=== PATIENT | female | born 1945 | race Caucasian/White ===

== ENCOUNTER 2020-03-07 01:13 | Inpatient (IN) | payer OTHER ==
[~2020-03-07] VITALS: Ht 157.5 cm; Wt 45.9 kg
[2020-03-07 01:22] VITALS: BP 198/78
[2020-03-07 04:33] LABS: BASOPHILS 0.5 % (0.0-2.0); EOSINOPHILS 1.7 % (0.0-3.0); HEMATOCRIT 38.6 % (37.0-47.0); HEMOGLOBIN 12.7 gm/dL (12.0-15.0); LYMPHOCYTES 5.2 % (24.0-44.0); MCH 28.2 pg (26.0-34.0); MCHC 32.8 g/dL (28.0-37.0); MCV 85.9 fL (80.0-100.0); PLATELET COUNT 250 thou/uL (150-400); POLYS 80.6 % (36.0-66.0); RBC 4.49 mil/uL (4.20-5.00); RDW 13.1 % (10.5-14.5); WBC 8.7 thou/uL (4.0-11.0)
[2020-03-07 04:56] LABS: ANION GAP 10 mmol/L (7-16); BUN 16 mg/dL (7-18); CALCIUM 9.7 mg/dL (8.5-10.1); CHLORIDE 104 mmol/L (98-107); CO2 23 mmol/L (21-32); CREATININE 0.6 mg/dL (0.6-1.0); GLUCOSE 167 mg/dL (74-106); POTASSIUM 4.9 mmol/L (3.5-5.1); SODIUM 137 mmol/L (136-145)
[2020-03-07 05:04] LABS: TROPONIN-I <0.06 ng/mL (<0.06)
[2020-03-07] MEDS ORDERED: ALENDRONATE SOD70 MG PO (05:12)
[2020-03-07] MEDS ORDERED: LISINOPRIL20 MG PO ×2 (05:12→05:13)
[2020-03-07] MEDS ORDERED: LIPITOR20 MG PO (05:12)
[2020-03-07] MEDS ORDERED: FISH OIL 1,0001 EAC9 PO (05:13)
[2020-03-07] MEDS ORDERED: ATENOLOL 25 MG25 M1 PO (05:13)
[2020-03-07] MEDS ORDERED: CHILDREN'S ASPI81 M1 PO (05:13)
[2020-03-07 06:14] LABS: URINE BILIRUBIN NEGATIVE (Negative); URINE BLOOD NEGATIVE (Negative); URINE CLARITY CLEAR; URINE COLOR YELLOW; URINE GLUCOSE-RANDOM* NEGATIVE (Negative); URINE KETONES NEGATIVE (Negative); URINE LEUKOCYTES-REFLEX NEGATIVE (Negative); URINE NITRITE-REFLEX NEGATIVE (Negative); URINE PROTEIN (DIPSTICK) TRACE (Negative); URINE UROBILINOGEN 0.2 E.U./dl (0.2-1.0)
--- NOTE | 2020-03-07 07:19 | EKG ---
[place] [address] [facility] [place] [address] ELECTROCARDIOGRAM REPORT Name: WILLIAM MENDOZA Room #: 170-2 ADM IN M.R.#: [id number] Admission: 03/07/20 Attend Phys: Dennys Cheney Discharge: Date of : 49 Report #: [id number] [facility] ED Test Date: 2020-03-07 Test Time: 04:20:44 Pat Name: WILLIAM MENDOZA Department: Room: 170 Gender: F Early Childhood Director: MARITZA : 1945 Requested By: Maryann Renteria Order Number: [id number] MD: Alexx Garcia Measurements Intervals [place] Rate: 91 P: 51 AK: 125 QRS: 12 QRSD: 85 T: 46 QT: 350 QTc: 431 Interpretive Statements Sinus rhythm Nonspecific ST segment abnormality Compared to ECG 08/21/1993 16:39:00 Atrial premature complex(es) no longer present Electronically Signed On 03-07-2020 7:19:30 COMBER SETTER by Alexx Garcia [email or web address] <ELECTRONICALLY SIGNED> By: Alexx Garcia MD, [facility] 03/07/20 0719 0420 042 Alexx Garcia MD, FACC /EPI
[2020-03-07 08:04] LABS: APTT 27.9 Seconds (24.5-32.8); PROTIME 10.5 Seconds (9.3-11.4)
[2020-03-07 11:21] LABS: FOLIC ACID 66.6 ng/mL (8.6-58.9)
[2020-03-07 14:46] LABS: CLARITY CLOUDY; COLOR RED; SOURCE CHEST; TOTAL VOLUME 60 mL
[2020-03-07 14:56] LABS: BF NUCLEATED CELLS 2286 /mm3; BF RBC 198679 /mm3
[2020-03-07 15:15] VITALS: BP 157/75
[2020-03-07 15:16] VITALS: BP 145/67
[2020-03-07 16:39] LABS: BF MACROPHAGE 24 %; BF NEUTROPHILS 73 %
[2020-03-07 19:00] VITALS: BP 146/63
--- NOTE | 2020-03-07 19:40 | NUR ---
PT. ARRIVED AT FLOOR AROUND 1500; PT. AOX4; C/O PAIN OVER L. SIDE WHEN UP AND MOVING; REFUSED PRN PAIN MEDICATION; EDUCATED ABOUT PAIN MANAGEMENT; EDUCATED ABOUT FALL PREVENTIONS; ST. UNDERSTANDING; EDUCATED ABOUT CALL LIGHT & BED CONTROLS; ADMISSION PERFORMED; SR ON THE MONITOR; ASSESSMENT CHARGED; FOLLOWING POC; SPOUSE UPDATED ABOUT PT'S HEALTH; ST. UNDERSTANDING; ASSESSMENT CHARGED; FOLLOWING POC; PASSED ON REPORT;
[2020-03-07 23:52] VITALS: BP 145/60
[2020-03-08 00:06] LABS: GLYCOHEMOGLOBIN (HGB A1C) 5.6 % (4.8-5.6)
[2020-03-08 04:00] VITALS: BP 142/58
--- NOTE | 2020-03-08 04:50 | NUR ---
ASSESSMENTS CHARTED, MEDS CHARTED GIVEN. PATIENT RESTING IN BED DURING SHIFT. UP TO BSC WITH ASSIST OF ONE. PATIENT STATES SHE IS BREATHING MUCH BETTER NOW THAT FLUID HAS BEEN REMOVED. ON ROOM AIR. HS ACCU CHECK WAS 184 COVERED WITH 3 UNITS HUMALOG. PATIENT RECEIVING ANTIBIOTICS CHARTED. PATIENT IS SCHEDULED FOR ANOTHER CXR THIS MORNING. FALL PRECAUTIONS ARE IN PLACE DURING SHIFT.
[2020-03-08 07:35] VITALS: BP 140/75
[2020-03-08 11:30] VITALS: BP 157/70
[2020-03-08 12:06] LABS: BODY FLUID ALBUMIN 2.1 g/dL (Not Estab.); BODY FLUID AMYLASE 15 U/L (()); BODY FLUID GLUCOSE 123 mg/dL (()); BODY FLUID LDH 288 IU/L (()); BODY FLUID PROTEIN 3.3 g/dL (())
[2020-03-08 15:28] LABS: SOURCE CHEST
[2020-03-08 15:29] LABS: SOURCE CHEST
[2020-03-08 15:45] VITALS: BP 135/74
--- NOTE | 2020-03-08 19:34 | NUR ---
RECEIVE PT'S CARE AROUND 0710; PT. ON BED; ALERT; SR ON THE MONITOR; DURING AM ASSESSMENT AOX4; C/O PAIN OVER BACK; REFUSED PAIN MEDICATION; AM MEDICATION GIVEN; ABLE TO GET UP FROM BED TO BATHROOM; NO C/O SOB; EDUCATED ABOUT FALL PRECAUTIONS; ST. UNDERSTANDING; OT/PT ORDERED; ASSESSMENT CHARGED; FOLLOWING POC; WILL PASS ON REPORT;
[2020-03-08 19:40] VITALS: BP 154/67
[2020-03-09 04:30] VITALS: BP 174/65
[2020-03-09 07:42] VITALS: BP 150/65
[2020-03-09 12:04] VITALS: BP 139/69
[2020-03-09 15:30] VITALS: BP 141/68
--- NOTE | 2020-03-09 20:06 | NUR ---
RECEIVED PT'S CARE AROUND 709; PT. ON BED; AOX4; DURING AM ASSESSMENT C/O BACK PAIN; 04/30; LIDOCAINE PATCH APPLIED PER EMAR; AM MEDICATIONS GIVEN; SR ON THE MONITOR; DURING THE AFTERNOON AMBULATED AROUND THE UNIT; NO C/O SOB; EDUCATED ABOUT FALL PRECAUTIONS; ST. UNDERSTANDING; ASSESSMENT CHARGED; PASSED ON REPORT;
[2020-03-09 20:25] VITALS: BP 146/74
[2020-03-10 05:46] VITALS: BP 163/67
--- NOTE | 2020-03-10 07:18 | NUR ---
ASSUMED CARE OF THE PATIENT AT 1900; AOX4/ SBA TO TOILET AND CALLS APPROPRIATELY; SR/PVC ON THE MONITOR; NO C/O OF PAIN OR SOB; RESTED QUIETLY THROUGHOUT THE NOC; PLAN IS FOR PATIENT TO UNDERGO MRI TODAY; WILL CONTINUE TO MONITOR.
[2020-03-10 07:31] VITALS: BP 144/73
[2020-03-10 11:25] VITALS: BP 147/64
--- NOTE | 2020-03-10 13:09 | NUR ---
Met with patient who admits with pleural effusion. Patient with spouse at bedside. Patient with plan to dc home today with HH care. Patient reports Dr Roach is her PCP. She reports they are interested in [facility]. Informed [facility] is not related to [facility]. They are aware and agreeable to cont with using [facility]. DC automatic data processing planner to arrange HH care.
--- NOTE | 2020-03-10 15:17 | NUR ---
FAXED REFERRAL TO [facility] SPOKE WITH LICHA IN INTAKE THEY ARE ACCEPTING REFERRAL BUT WOULD NOT BE ABLE TO DO HH VISIT TIL POSS TUESDAY. FAXED REFERRAL TO [facility] SPOKE WITH BENEDICT IN INTAKE THEY CAN ACCEPT AT DISCHARGE.
[2020-03-10 15:35] VITALS: BP 125/55
--- NOTE | 2020-03-10 15:38 | NUR ---
[facility] would not be able to see patient in timely manner. Patient agreeable to use another HH agency. [facility] can accept patient agreeable.
[2020-03-10 15:39] VITALS: BP 147/64
--- NOTE | 2020-03-10 17:49 | NUR ---
ASESSMENT CHARTED - MEDS PER MAY- LAINE DIET AND FLUIDS. PATIENT ATE LUNCH VERY LATE AND BLOOD SUGAR ELEVATED AT 1700 - OPTED TO NOT TAKE INSULIN SHE WAS NOT HUNGRY AND DID NOT WISH TO EAT - WILL REASSESS AT 2100. NO CO'S OF PAIN OR NAUSEA. AMBULATING IN THE DELATORRE WITH STABY ASSIST. UNABLE TO COMPLETE MRI TODAY DUE TO EMERGENY USAGE OF MRI. PT WILL HAVE COMPLETED TOMORROW. NO CO'S AT THE PRESENT TIME.
[2020-03-10 20:30] VITALS: BP 153/61
[2020-03-11 04:00] VITALS: BP 153/74
--- NOTE | 2020-03-11 07:09 | NUR ---
ASSUMED CARE OF THE PATIENT AT 1900; AOX4; SBA TO TOILET/CALLS APPRORPRIATELY; SR WITH SHORT BURST OF SVT/SEE CHART; NO C/O OF PAIN; PLAN IS FOR PATIENT TO HAVE MRI TODAY; WILL CONTINUE TO MONITOR.
[2020-03-11 07:36] VITALS: BP 153/70
[2020-03-11] MEDS ORDERED: HYDROCODON-ACE1 EAC7 PO (09:05)
[2020-03-11] MEDS ORDERED: AUGMENTIN 500-1 EACH PO (09:05)
--- NOTE | 2020-03-11 13:51 | NUR ---
PT DISCHARGING TODAY TO HOME WITH [facility] FAXED DC ORDERS/SUMMARY SPOKE WITH BENEDICT IN INTAKE SHE RECEIVED ORDERS AND WILL ARRANGE VISITS WITH PT.
[2020-03-11 13:54] VITALS: BP 141/61
[2020-03-11 14:39] VITALS: BP 147/64
[2020-03-11 14:41] VITALS: BP 147/64
--- NOTE | 2020-03-11 15:07 | PATH ---
[facility] [address] [place] [address] PATHOLOGY RPT PROCEDURE Name: WILLIAM MENDOZA Room #: 205-P ADM IN M.R.#: [id number] Admission: 03/07/20 Date of : 49 Discharge: Report #: [id number] Path Case #: [id number] Note [facility] Accession Number: [id number] TESTS RESULT FLAG UNITS REF RANGE LAB Clinician Provided Cytology Information No. of containers..01 Other (Miscellaneous) Source: LEFT PLEURAL DIAGNOSIS: 02 LEFT PLEURAL NEGATIVE FOR MALIGNANT EPITHELIAL CELLS. REACTIVE MESOTHELIAL CELLS ARE PRESENT. THIS INTERPRETATION INCLUDES EVALUATION OF A CELL BLOCK. MILD CHRONIC INFLAMMATION. Pathologist ICD10: 02 J90 Signed out by: 02 Deana Phillips MD, Pathologist NPI- [id number] Performed by: 01 Cristy Pool, Editor Sound ([facility]) Gross description: 01 15ML, RED, 1 TP 1 CB /LCS 03/10/2020 1126 Local FLAG LEGEND: L-Low Normal,H-High Normal,LL-Alert Low,HH-Alert High <-Panic Low,>-Panic High,A-Abnormal,AA-Critical Abnormal Performed at: [address] [place] [address] Jaime Huddleston MD, [address] [address] Deana Phillips MD, Specimen Comment: A courtesy copy of this report has been sent to [phone] Specimen Comment: Report sent to Performed at: [address], [place], [place] [id number] MD Jaime Huddleston MD Phone: [phone]
--- NOTE | 2020-03-11 15:24 | NUR ---
PT ASSESSED FOR SHORTNESS OF BREATH FROM RIB INJURY. PT IS UP WITH STAND BY ASSIST, FALL PRECAUTIONS IN PLACE. VSS. PT ASSESSED BY PHYSICAL THERAPY. PT HAD MRI. PT MET WITH CIVIL DRAFTING TECHNICIAN FOR DISCHARGE TO HOME WITH HOME HEALTH. WAS PRESENT FOR DISCHARGE EDUCATION ON NEW MEDICATIONS, CONTINUING CURRENT MEDICATIONS, AND FUTURE APPTS. PT DISCHARGED WITH VIA CAR.
== END 2020-03-11 15:59 | disposition home health service (06) | DRG 200 ==
LOC: ER 01:13 → 2N 06:17 → EROBS 06:17 → 2N 14:50
PROVIDERS: Emergency Medicine; Nurse Practitioner; ADMIT Hospitalist; ATTEND Hospitalist
PROC: 0W9B3ZZ Drainage of Left Pleural Cavity, Percutaneous Approach (ICD-10-PCS; principal; 2020-03-07)
DX: S27.1XXA Traumatic hemothorax, initial encounter (principal); S22.39XA Fracture of one rib, unspecified side, initial encounter for closed fracture; J90 Pleural effusion, not elsewhere classified; I10 Essential (primary) hypertension; E78.5 Hyperlipidemia, unspecified; R73.03 Prediabetes; Z90.12 Acquired absence of left breast and nipple; M54.9 Dorsalgia, unspecified; Z20.828 Contact with and (suspected) exposure to other viral communicable diseases
CPT/HCPCS: 10081

== ENCOUNTER → 2020-03-31 | Outpatient (CLI) | payer OTHER ==
[~2020-03-31] MED LIST: ALENDRONATE SOD70 MG PO; ATENOLOL 25 MG25 M1 PO; AUGMENTIN 500-1 EACH PO; CHILDREN'S ASPI81 M1 PO; FISH OIL 1,0001 EAC9 PO; HYDROCODON-ACE1 EAC7 PO; LIPITOR20 MG PO; LISINOPRIL20 MG PO
== END ==
LOC: RAD 12:59
PROVIDERS: ATTEND Internal Medicine
DX: J90 Pleural effusion, not elsewhere classified (principal)

== ENCOUNTER → 2020-04-02 | Outpatient (CLI) | payer OTHER ==
[2020-04-02 10:34] LABS: ABSOLUTE NEUTROPHILS 3.8 thou/uL (1.4-8.2); BASOPHILS 2.4 % (0.0-2.0); EOSINOPHILS 8.7 % (0.0-3.0); HEMATOCRIT 43.9 % (37.0-47.0); HEMOGLOBIN 13.9 gm/dL (12.0-15.0); LYMPHOCYTES 13.7 % (24.0-44.0); MCH 26.9 pg (26.0-34.0); MCHC 31.6 g/dL (28.0-37.0); MCV 85.2 fL (80.0-100.0); MONOCYTES 10.2 % (1.0-8.0); PLATELET COUNT 204 thou/uL (150-400); RBC 5.16 mil/uL (4.20-5.00); RDW 14.8 % (10.5-14.5); WBC 5.9 thou/uL (4.0-11.0)
[2020-04-02 10:44] LABS: CALCIUM 9.9 mg/dL (8.5-10.1); POTASSIUM 3.5 mmol/L (3.5-5.1)
[2020-04-02 10:47] LABS: APTT 25.2 Seconds (24.5-32.8)
[2020-04-02 12:36] LABS: CLARITY HAZY; COLOR AMBER; SOURCE PLEURAL; TOTAL VOLUME 62 mL
[2020-04-02 13:02] LABS: BF NUCLEATED CELLS 526 /mm3; BF RBC 13907 /mm3
[2020-04-02 13:29] LABS: SOURCE CHEST
[2020-04-02 15:14] LABS: BF MACROPHAGE 22 %; BF NEUTROPHILS 2 %
[2020-04-03 10:08] LABS: BODY FLUID ALBUMIN 2.3 g/dL (Not Estab.); BODY FLUID AMYLASE 23 U/L (()); BODY FLUID GLUCOSE 118 mg/dL (()); BODY FLUID LDH 111 IU/L (()); BODY FLUID PROTEIN 3.5 g/dL (())
== END | disposition home or self-care (01) ==
LOC: ULTRA 09:45
PROVIDERS: ATTEND Internal Medicine
DX: J90 Pleural effusion, not elsewhere classified (principal); Z79.899 Other long term (current) drug therapy; Z87.81 Personal history of (healed) traumatic fracture

== ENCOUNTER → 2020-04-23 | Outpatient (CLI) | payer OTHER | LOC: RAD 12:06 | PROVIDERS: ATTEND Internal Medicine | DX: R06.00 Dyspnea, unspecified (principal) ==

== ENCOUNTER → 2020-06-24 | Outpatient (CLI) | payer OTHER | LOC: RAD 10:37 | PROVIDERS: ATTEND Internal Medicine | DX: J98.11 Atelectasis (principal); J90 Pleural effusion, not elsewhere classified ==

== ENCOUNTER → 2020-06-30 | Outpatient (CLI) | payer OTHER ==
[2020-06-30 12:48] LABS: HEMOGLOBIN 13.5 gm/dL (12.0-15.0); RDW 15.2 % (10.5-14.5); WBC 5.9 thou/uL (4.0-11.0)
[2020-06-30 12:50] LABS: HEMATOCRIT 41.6 % (37.0-47.0); MCHC 32.4 g/dL (28.0-37.0); MCV 86.3 fL (80.0-100.0); RBC 4.82 mil/uL (4.20-5.00)
[2020-06-30 13:04] LABS: APTT 23.4 Seconds (24.5-32.8); INR 0.96; PROTIME 10.5 Seconds (9.3-11.4)
[2020-06-30 13:05] LABS: CALCIUM 9.9 mg/dL (8.5-10.1); CREATININE 0.8 mg/dL (0.6-1.0); POTASSIUM 3.9 mmol/L (3.5-5.1)
[2020-06-30 13:29] LABS: ABSOLUTE NEUTROPHILS 3.6 thou/uL (1.4-8.2); ANISOCYTOSIS SLIGHT; PLATELET COUNT 130 thou/uL (150-400)
[2020-06-30 13:30] LABS: POLYCHROMASIA SLIGHT; SCHISTOCYTES OCCASIONAL
== END | disposition home or self-care (01) ==
LOC: LAB 11:51
PROVIDERS: ATTEND Surgery Vascular Surgery
DX: J90 Pleural effusion, not elsewhere classified (principal); Z79.899 Other long term (current) drug therapy; Z20.822 Contact with and (suspected) exposure to COVID-19

== ENCOUNTER → 2020-07-29 | Outpatient (CLI) | payer OTHER | LOC: RAD 12:01 | PROVIDERS: ATTEND Surgery Vascular Surgery | DX: J90 Pleural effusion, not elsewhere classified (principal) ==

== ENCOUNTER → 2020-11-04 | Outpatient (CLI) | payer OTHER | LOC: RAD 10:57 | PROVIDERS: ATTEND Surgery Vascular Surgery | DX: S22.42XA Multiple fractures of ribs, left side, initial encounter for closed fracture (principal); J90 Pleural effusion, not elsewhere classified; R18.8 Other ascites; X58.XXXA Exposure to other specified factors, initial encounter; Y92.89 Other specified places as the place of occurrence of the external cause; Y93.89 Activity, other specified; Y99.8 Other external cause status ==

== ENCOUNTER → 2021-02-03 | Outpatient (CLI) | payer OTHER | LOC: RAD 14:33 | PROVIDERS: ATTEND Surgery Vascular Surgery | DX: J90 Pleural effusion, not elsewhere classified (principal) ==

== ENCOUNTER → 2021-02-04 | Outpatient (CLI) | payer OTHER ==
[~2021-02-04] MED LIST changes: +IRON325 PO; +LEVOFLOXACIN500 MG PO
== END ==
LOC: SJCVCIMAG 09:37
PROVIDERS: ATTEND Surgery Vascular Surgery
DX: J90 Pleural effusion, not elsewhere classified (principal); Z79.82 Long term (current) use of aspirin; Z79.899 Other long term (current) drug therapy; E11.9 Type 2 diabetes mellitus without complications; I10 Essential (primary) hypertension; Z82.49 Family history of ischemic heart disease and other diseases of the circulatory system

== ENCOUNTER 2021-02-05 12:34 | Inpatient (IN) | payer OTHER ==
[~2021-02-05] VITALS: Ht 154.9 cm; Wt 48.5 kg
[~2021-02-05 12:34] MED LIST changes: -IRON325 PO; -LEVOFLOXACIN500 MG PO
[2021-02-05 12:35] VITALS: BP 162/54
[2021-02-05 13:11] LABS: BASOPHILS 1.7 % (0.0-2.0)
[2021-02-05 13:13] LABS: EOSINOPHILS 2.4 % (0.0-3.0); HEMATOCRIT 21.8 % (37.0-47.0); HEMOGLOBIN 6.5 gm/dL (12.0-15.0); LYMPHOCYTES 11.8 % (24.0-44.0); MCH 20.9 pg (26.0-34.0); MCHC 30.1 g/dL (28.0-37.0); MCV 69.6 fL (80.0-100.0); MONOCYTES 15.3 % (1.0-8.0); PLATELET COUNT 208 thou/uL (150-400); POLYS 68.8 % (36.0-66.0); RBC 3.13 mil/uL (4.20-5.00); RDW 17.2 % (10.5-14.5); WBC 5.9 thou/uL (4.0-11.0)
[2021-02-05 13:30] LABS: CALCIUM 9.3 mg/dL (8.5-10.1); CREATININE 0.8 mg/dL (0.6-1.0); POTASSIUM 4.3 mmol/L (3.5-5.1)
[2021-02-05 13:35] LABS: ALBUMIN 3.6 g/dL (3.4-5.0); TOTAL BILIRUBIN 0.7 mg/dL (0.2-1.0); TOTAL PROTEIN 6.4 g/dL (6.4-8.2)
--- NOTE | 2021-02-05 13:45 | NUR ---
REQUESTED IV TEAM FOR SECOND IV D/T PT HAVING TO HAVE AT LEAST 2 UNITS OF BLOOD. IV TEAM NOTED PT WAS "TOO DIFFICULT OF A STICK SO I CANNOT PLACE AND IV JUST BECAUSE/INCASE" THIS RN STATED IT WAS D/T THE FACT THAT ONLY BLOOD CAN RUN THROUGH THE LINE. ED PROVIDER NOTIFIED.
[2021-02-05 14:41] LABS: MICROCYTES 1+; POIKILOCYTOSIS 1+
[2021-02-05 14:43] LABS: HYPOCHROMASIA 2+; TEARDROPS RARE
--- NOTE | 2021-02-05 16:10 | NUR ---
CALLED BLOOD BANK REGARDING BLOOD, STATED THAT THERE WAS NO ORDER. ED PROVIDER THAT HAD PLACED ORDERS NO LONGER HERE, CALLED DR. MAR TO NOTIFY. DR. MAR NOTED HE WOULD FIX ORDER
[2021-02-05 17:11] LABS: % SATURATION 3 % (20-39); IRON 14 ug/dL (50-170); TIBC 491 ug/dL (250-450)
--- NOTE | 2021-02-05 17:49 | NUR ---
VAT REQUESTED TO PLACE SECOND PIV, "IN CASE" SHE HAS OTHER MEDS SHE NEEDS, BESIDES TRANSFUSION. PT ONLY HAS LEFT ARM TO USE. PT HAS HAD MASTECTOMY ON RIGHT AND WEARS LYMPHEDEMA COMPRESSION SLEEVE ON ARM. PT HAS PATENT LEFT AC 20G. THIS RN FLUSHED AND IT RETURNS BLOOD. PT SAID SHE DID NOT WANT TO BE STUCK FOR SECOND PIV, UNLESS ABSOLUTELY NECESSARY, SHE WAS STUCK MULTIPLE TIMES, YESTERDAY, FOR LAB DRAW. DISCUSSED WITH RN, THAT THIS RN CAN COME BACK IF ANYTHING CHANGES.
[2021-02-05 19:37] VITALS: BP 154/67; BP 157/61; BP 160/55
[2021-02-05 20:23] VITALS: BP 161/62
[2021-02-05 22:16] VITALS: BP 145/51
[2021-02-06 02:11] VITALS: BP 161/62
[2021-02-06 03:19] VITALS: BP 143/54
[2021-02-06 04:06] VITALS: BP 143/55
--- NOTE | 2021-02-06 07:06 | EKG ---
[address] [address] ELECTROCARDIOGRAM REPORT Name: WILLIAM MENDOZA Room #: 464-P ADM IN M.R.#: [id number] Admission: 02/05/21 Attend Phys: Gab Preston MD Discharge: Date of : 49 Report #: [id number] [facility] ED Test Date: 2021-02-05 Test Time: 12:33:45 Pat Name: WILLIAM MENDOZA Department: Room: 464 Gender: F Skoog Operator: STEVE : 1945 Requested By: Grecia Baltazar Order Number: [id number] MD: Jairo Obregon Measurements Intervals [place] Rate: 95 P: 71 ME: 148 QRS: 30 QRSD: 90 T: 80 QT: 339 QTc: 426 Interpretive Statements Sinus rhythm Borderline repol abnrm, anterolateral leads Compared to ECG 03/07/2020 04:20:44 ST (T wave) deviation no longer present Electronically Signed On 02-06-2021 7:05:56 WARP PLACER by Jairo Obregon [email or web address] <ELECTRONICALLY SIGNED> By: Jairo Obregon MD, FAC 02/06/21 0705 1233 1233 Jairo Obregon MD, [facility] /EPI
[2021-02-06 07:45] LABS: CALCIUM 8.4 mg/dL (8.5-10.1); CREATININE 0.7 mg/dL (0.6-1.0); POTASSIUM 3.9 mmol/L (3.5-5.1)
[2021-02-06 07:46] LABS: MCH 22.8 pg (26.0-34.0)
[2021-02-06 07:48] LABS: HEMATOCRIT 25.2 % (37.0-47.0); HEMOGLOBIN 7.9 gm/dL (12.0-15.0); MCHC 31.6 g/dL (28.0-37.0); MCV 72.1 fL (80.0-100.0); RBC 3.49 mil/uL (4.20-5.00); RDW 18.9 % (10.5-14.5); WBC 8.2 thou/uL (4.0-11.0)
--- NOTE | 2021-02-06 07:51 | NUR ---
patient admitted for anemia. patient aox4 makes needs known. patient denied pain or discomfort. patient ambulates to the bathroom with steady gaits. fall precaution in place. patient has been npo since midnight. fall precaution in place.patient in left at 0700 for egd.
[2021-02-06 09:15] VITALS: BP 135/48
--- NOTE | 2021-02-06 12:37 | NUR ---
ORDERS RECEIVED AND CHART REVIEWED. PER EMR, Pt HAS BEEN UP AMBULATING STEADILY. SPOKE TO BOTH Pt AND HER S.O. WHO STATE THAT SHE DOES NOT NEED ANY P.T. AND HAS BEEN WALKING SAFELY AND WITHOUT ANY LOB. INFORMED Pt THAT IF THIS CHANGES WHILE SHE IS HERE AND SHE DECIDES THAT SHE WOULD LIKE TO HAVE P.T., TO JUST LET HER NURSE KNOW AND THE ORDERS CAN BE PUT BACK IN. WILL D/C P.T. AT THIS TIME.
[2021-02-06 16:26] VITALS: BP 133/54
[2021-02-06 16:49] LABS: HEMATOCRIT 24.2 % (37.0-47.0); HEMOGLOBIN 7.7 gm/dL (12.0-15.0)
[2021-02-06 22:08] VITALS: BP 148/64
[2021-02-07 05:57] LABS: HEMATOCRIT 24.6 % (37.0-47.0); HEMOGLOBIN 7.7 gm/dL (12.0-15.0); MCH 22.4 pg (26.0-34.0); MCHC 31.3 g/dL (28.0-37.0); MCV 71.5 fL (80.0-100.0); RBC 3.44 mil/uL (4.20-5.00); RDW 19.4 % (10.5-14.5); WBC 6.5 thou/uL (4.0-11.0)
[2021-02-07 06:07] LABS: CALCIUM 8.5 mg/dL (8.5-10.1); CREATININE 0.7 mg/dL (0.6-1.0); POTASSIUM 3.6 mmol/L (3.5-5.1)
--- NOTE | 2021-02-07 06:21 | NUR ---
02/06/21 ASSUMED CARE @ 1900, IN BED ALERT AND ORIENTED X 4, COOPERATIVE WITH ASSESSMENT AND PLEASANT AFFECT NOTED. DENIES PAIN. HRRR, LUNGS CTA, WITH AN OCCASIONAL COUGH NOTED. ASKING FOR THE RESULTS OF HER EGD SAMPLE BIOPSY. 100% SPO2 ON ROOM AIR. DENIES PAIN. WILL CONTINUE TO MONITOR FOR SAFETY AND COMFORT.
[2021-02-07 07:30] VITALS: BP 146/58
[2021-02-07] MEDS ORDERED: LEVOFLOXACIN500 MG PO (12:53)
[2021-02-07] MEDS ORDERED: IRON325 PO (12:53)
--- NOTE | 2021-02-07 13:57 | NUR ---
ASSUMED PT CARE THIS AM. PT A&OX4, ABLE TO MAKE NEEDS KNOWN. PATIENT REPORTING NO PAIN. IV REMAINS PATENT, MEDICATIONS TAKEN WITHOUT ISSUE. PATIENT REFUSING BED ALARM, INSTRUCTED TO CALL WHEN NEEDED. CALL LIGHT WITHIN REACH. PATIENT REMAINS CONTINENT AND IS ON ROOM AIR.
[2021-02-07 13:59] VITALS: BP 146/58
== END 2021-02-07 15:10 | disposition home or self-care (01) | DRG 379 ==
LOC: ER 12:34 → EROBS 13:36 → 4W 13:36
PROVIDERS: Nurse Practitioner; Nurse Practitioner Family; ADMIT Hospitalist; ATTEND Hospitalist
PROC: 30233N1 Transfusion of Nonautologous Red Blood Cells into Peripheral Vein, Percutaneous Approach (ICD-10-PCS; principal; 2021-02-05)
PROC: 0DB68ZX Excision of Stomach, Via Natural or Artificial Opening Endoscopic, Diagnostic (ICD-10-PCS; 2021-02-06)
DX: K29.71 Gastritis, unspecified, with bleeding (principal); D50.9 Iron deficiency anemia, unspecified; Z20.822 Contact with and (suspected) exposure to COVID-19; I10 Essential (primary) hypertension; M81.0 Age-related osteoporosis without current pathological fracture; E78.5 Hyperlipidemia, unspecified; Z85.3 Personal history of malignant neoplasm of breast; Z86.010 Personal history of colon polyps; Z92.21 Personal history of antineoplastic chemotherapy; Z90.13 Acquired absence of bilateral breasts and nipples; Z79.82 Long term (current) use of aspirin; Z79.899 Other long term (current) drug therapy
CPT/HCPCS: 10040; 70005

== ENCOUNTER → 2021-02-11 | Outpatient (CLI) | payer OTHER ==
[~2021-02-11] MED LIST changes: +IRON325 PO; +LEVOFLOXACIN500 MG PO
== END ==
LOC: RAD 09:21
PROVIDERS: ATTEND Internal Medicine
DX: J90 Pleural effusion, not elsewhere classified (principal); R91.8 Other nonspecific abnormal finding of lung field

== ENCOUNTER → 2021-02-17 | Outpatient (CLI) | payer OTHER | LOC: SJCVC 14:34 | PROVIDERS: ATTEND Internal Medicine | DX: R94.31 Abnormal electrocardiogram [ECG] [EKG] (principal); I49.3 Ventricular premature depolarization; R06.00 Dyspnea, unspecified; Z13.220 Encounter for screening for lipoid disorders; E11.9 Type 2 diabetes mellitus without complications; I10 Essential (primary) hypertension; J18.9 Pneumonia, unspecified organism; Z98.890 Other specified postprocedural states; Z79.899 Other long term (current) drug therapy; Z90.710 Acquired absence of both cervix and uterus ==

== ENCOUNTER → 2021-04-14 | Outpatient (CLI) | payer OTHER | LOC: RAD 11:53 | PROVIDERS: ATTEND Internal Medicine | DX: J90 Pleural effusion, not elsewhere classified (principal); J98.4 Other disorders of lung; J98.11 Atelectasis ==

== ENCOUNTER → 2021-04-29 | Outpatient (CLI) | payer OTHER | LOC: MRI 12:44 | PROVIDERS: ATTEND Specialist | DX: K76.89 Other specified diseases of liver (principal); N28.1 Cyst of kidney, acquired; R59.9 Enlarged lymph nodes, unspecified; R94.5 Abnormal results of liver function studies; R93.3 Abnormal findings on diagnostic imaging of other parts of digestive tract ==